=== PATIENT | male | born 1995 | race Caucasian/White ===

== ENCOUNTER 2016-09-06 12:02 | Emergency (ER) | payer SELFPAY ==
[~2016-09-06] VITALS: Ht 188 cm; Wt 75.0 kg
[2016-09-06] MEDS ORDERED: FLUO-191 PO (12:13)
[2016-09-06] MEDS ORDERED: [UNRECOGNIZED DRUG - OTHER] PO (12:27)
[2016-09-06] MEDS ORDERED: [UNRECOGNIZED DRUG - OTHER] PO (12:32)
[2016-09-06 16:35] VITALS: BP 129/82
[2016-09-06] MEDS ORDERED: LORazepam 1 MG TABLET PO ONE (17:30)
== END 2016-09-06 17:41 | disposition home or self-care (01) ==
LOC: EMS 12:05
DX: R07.89 Other chest pain (principal); F41.9 Anxiety disorder, unspecified
CPT/HCPCS: 71020; 93005; 99284

== ENCOUNTER 2017-11-09 18:58 | Emergency (ER) | payer MEDICAID ==
[~2017-11-09] VITALS: Ht 188 cm; Wt 75.0 kg
[~2017-11-09 18:58] MED LIST: FLUO-191 PO; [UNRECOGNIZED DRUG - OTHER] PO; [UNRECOGNIZED DRUG - OTHER] PO
[2017-11-09] MEDS ORDERED: IBUPROFEN 800 MG TABLET PO ONE (20:30)
[2017-11-09 21:25] VITALS: BP 120/85
== END 2017-11-09 21:26 | disposition home or self-care (01) ==
LOC: EMS 18:59
DX: M25.512 Pain in left shoulder (principal); F41.9 Anxiety disorder, unspecified
CPT/HCPCS: 99284

== ENCOUNTER 2023-01-16 18:18 | Emergency (ER) | payer MEDICAID ==
[~2023-01-16] VITALS: Ht 188 cm; Wt 90.9 kg
[2023-01-16 23:02] LABS: BASOPHILS % (AUTO) 0.9 % (0.0-2.0); EOSINOPHILS % (AUTO) 3.3 % (1.0-6.0); HEMATOCRIT 41.2 % (41-53); HEMOGLOBIN 13.8 g/dL (13.5-17.5); LYMPHOCYTES # (AUTO) 2.8 K/uL (1.0-4.8); MEAN CORPUSCULAR HEMOGLOBIN 31.4 pg (26.0-34.0); MEAN CORPUSCULAR HGB CONC 33.6 G/dL (31.0-37.0); MEAN CORPUSCULAR VOLUME 94 fL (80-100); MONOCYTES # (AUTO) 0.7 K/uL (0.1-1.0); MONOCYTES % (AUTO) 8.7 % (2.0-9.0); NEUTROPHILS % (AUTO) 51.1 % (40.0-70.0); PLATELET COUNT (AUTO) 251 K/uL (150-450); RED BLOOD CELL COUNT(AUTO) 4.41 MIL/uL (4.50-5.90); RED CELL DISTRIBUTION WIDTH 14.1 % (11.5-14.5)
[2023-01-16 23:10] LABS: ANION GAP 11 mmol/L (8-16); CALCIUM, TOTAL 9.1 mg/dL (8.8-10.5); CARBON DIOXIDE 26 mmol/L (22-29); CHLORIDE 105 mmol/L (98-107); CREATININE 1.04 mg/dL (0.60-1.30); GLOMERULAR FILTR. RATE CALC > 60 mL/min (>60); GLUCOSE,RANDOM 104 mg/dL (70-110); POTASSIUM 3.8 mmol/L (3.5-5.1); SODIUM SERUM 142 mmol/L (136-145)
[2023-01-16 23:13] LABS: ALANINE AMINOTRANSFERASE 59 U/L (12-78); ALKALINE PHOSPHATASE 93 U/L (46-116); ASPARTATE AMINOTRANSFERASE 25 U/L (15-37); BILIRUBIN,TOTAL 0.4 mg/dL (0.1-1.0); TOTAL PROTEIN, SERUM 7.3 g/dL (6.4-8.2)
[2023-01-17 00:08] VITALS: BP 130/76; PULSE 80; RESP 17; TEMP 98.2
[2023-01-17] MEDS ORDERED: IBUP-1554 PO (00:10)
[2023-01-17] MEDS ORDERED: IBUPROFEN 600 MG TABLET PO ONE (00:15)
== END 2023-01-17 00:57 | disposition home or self-care (01) ==
LOC: EMS 18:32
DX: R07.89 Other chest pain (principal); R00.2 Palpitations; F41.9 Anxiety disorder, unspecified
CPT/HCPCS: 71045; 80053; 84484; 85025; 93005; 99285

== ENCOUNTER 2025-07-09 15:10 | Emergency (ER) | payer MEDICAID, OTHER ==
[~2025-07-09] VITALS: Ht 188 cm; Wt 97.7 kg
[~2025-07-09 15:10] MED LIST changes: -FLUO-191 PO; +IBUP-1554 PO; -[UNRECOGNIZED DRUG - OTHER] PO; -[UNRECOGNIZED DRUG - OTHER] PO
[2025-07-09 15:15] VITALS: TEMP 98.4
[2025-07-09 15:59] LABS: PLATELET COUNT (AUTO) 246 K/uL (150-450); RED BLOOD CELL COUNT(AUTO) 4.62 MIL/uL (4.50-5.90); RED CELL DISTRIBUTION WIDTH 13.1 % (11.5-14.5); WHITE BLOOD COUNT (AUTO) 5.4 K/uL (4.5-11.0)
[2025-07-09 16:08] LABS: CALCIUM, TOTAL 8.8 mg/dL (8.8-10.5); CREATININE 1.05 mg/dL (0.60-1.30); GLOMERULAR FILTR. RATE CALC > 60 mL/min (>60); GLUCOSE,RANDOM 85 mg/dL (70-110); SODIUM SERUM 140 mmol/L (136-145); UREA NITROGEN, BLOOD 10 mg/dL (7-18)
[2025-07-09 16:18] LABS: TROPONIN I-HIGH SENSITIVITY 4 ng/L (<76)
[2025-07-09 18:13] VITALS: BP 131/82; PULSE 84; RESP 15; O2SAT 100
== END 2025-07-09 18:19 | disposition home or self-care (01) ==
LOC: EMS 15:12
DX: F41.9 Anxiety disorder, unspecified (principal); R42 Dizziness and giddiness; Z98.890 Other specified postprocedural states; Z79.899 Other long term (current) drug therapy
CPT/HCPCS: 71045; 80048; 82550; 84484; 85025; 93005; 99285; 36415-L1; 36415-TC